=== PATIENT | male | born 2000 | race Hispanic/Latino ===

== ENCOUNTER 2020-02-01 21:30 | Emergency (ER) | payer SELFPAY ==
[2020-02-01 22:16] LABS: Absolute Lymphocytes (CBC) 2.3 K/uL (0.7-4.9); Basophils % 0.4 % (0-1.3); Hematocrit 41.7 % (39.6-49.0); Lymphocytes % 29.4 % (15.3-44.8); MPV 8.8 fL (7.6-11.3); RBC Red Blood Cell Count 5.17 M/uL (4.33-5.43)
[2020-02-01 22:20] LABS: Protime INR 0.95
[2020-02-01 22:30] LABS: BUN Blood Urea Nitrogen 14 mg/dL (7-18); Bicarbonate 29 mmol/L (21-32); Glucose Level 100 mg/dL (74-106); Potassium 3.7 mmol/L (3.5-5.1); Sodium Level 141 mmol/L (136-145)
[2020-02-01] MEDS ORDERED: Levofloxacin 750mg IV 750 MG/150 ML BAG IV ONE (23:53)
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
[2020-02-02] MEDS ORDERED: dexAMETHasone 4 MG/ML VIAL ONE (00:46)
[2020-02-02 01:46] VITALS: TEMP 99.6
[2020-02-02 01:50] VITALS: BP 104/61; O2SAT 97
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
== END 2020-02-02 01:32 | disposition home or self-care (01) ==
LOC: ER 21:30
DX: J18.9 Pneumonia, unspecified organism (principal); Z20.828 Contact with and (suspected) exposure to other viral communicable diseases
CPT/HCPCS: 36415; 71045; 71275; 80048; 85025; 85610; 85730; 87804; 96374; 96375; 99284; J1100; Q9967; U0003